=== PATIENT | female | born 1975 | race Two or more races ===

== ENCOUNTER → 2018-07-11 | Outpatient (CLI) | payer OTHER ==
[2014-04-19 09:23] VITALS: BMI 33.4
[~2018-07-11] MED LIST: DOCU240C67 PO; Ferrous Sulfate PO; Ibuprofen PO; LEVO88TA45 PO; Lanolin TP; PER PO; PREPH PR
[2018-07-11 14:09] LABS: PLATELET COUNT, AUTOMATED 321 K/uL (150-450)
== END ==
LOC: LAB 13:36
PROVIDERS: ATTEND Obstetrics & Gynecology
DX: N92.0 Excessive and frequent menstruation with regular cycle (principal)
CPT/HCPCS: 36415; 82040; 82247; 82310; 82374; 82435; 82565; 82947; 84075; 84132; 84146; 84155; 84295; 84439; 84443; 84450; 84460; 84481; 84520; 85025

== ENCOUNTER → 2018-08-23 | Outpatient (REF) | payer OTHER ==
[2014-04-19 09:23] VITALS: BMI 33.4
== END ==
LOC: ZZSENDIN 13:39
PROVIDERS: ATTEND Obstetrics & Gynecology
DX: N76.0 Acute vaginitis (principal)
CPT/HCPCS: 87070

== ENCOUNTER → 2018-08-23 | Outpatient (CLI) | payer OTHER ==
[2014-04-19 09:23] VITALS: BMI 33.4
== END ==
LOC: LAB 13:58
PROVIDERS: ATTEND Obstetrics & Gynecology
DX: Z13.9 Encounter for screening, unspecified (principal); E03.9 Hypothyroidism, unspecified
CPT/HCPCS: 36415; 82306; 83036; 84443; 84481

== ENCOUNTER → 2018-09-25 | Outpatient (REF) | payer OTHER ==
[2014-04-19 09:23] VITALS: BMI 33.4
== END ==
LOC: ZZIMHLAB 15:46
PROVIDERS: ATTEND Obstetrics & Gynecology
DX: N91.2 Amenorrhea, unspecified (principal)
CPT/HCPCS: 84702

== ENCOUNTER → 2018-09-27 | Outpatient (CLI) | payer OTHER ==
[2014-04-19 09:23] VITALS: BMI 33.4
== END ==
LOC: LAB 13:54
PROVIDERS: ATTEND Obstetrics & Gynecology
DX: N92.0 Excessive and frequent menstruation with regular cycle (principal)
CPT/HCPCS: 36415; 82670; 83001; 83520; 84146

== ENCOUNTER → 2018-10-27 | Outpatient (CLI) | payer OTHER ==
[2014-04-19 09:23] VITALS: BMI 33.4
--- NOTE | 2018-10-28 03:20 | RADIOLOGY IMAGING REPORT ---
[place]AC[place] [facility] [place]IENT NAME: Merlin Pagan : 1975 MR: [id number] V: [id number] EXAM DATE: ORDERING PHYSICIAN: LYNDSAY CAMACHO TECHNOLOGIST: Location: [facility] Patient: Merlin Pagan : 1975 Visit/Account:[id number] Date of Sevice: 10/27/2018 EXAMINATION: ENDOVAGINAL PELVIC ULTRASOUND WITH DOPPLER DATE: 10/27/2018 3:40 PM INDICATION: Left lower quadrant pain. TECHNIQUE: Endovaginal harris scale, color, and pulsed Doppler ultrasound examination of the pelvis was performed. COMPARISON: None. FINDINGS: The uterus is anteverted and measures 7.8 x 4.5 x 5.8 cm. There is no definite focal lesion in the my ometrium. The endometrial stripe measures 5 mm in AP thickness, which is within normal limits. The right ovary measures 3.0 x 1.6 x 2.2 cm and contains physiologic follicles and has venous and art erial waveforms on pulsed Doppler. The left ovary measures 3.7 x 3.1 x 2.4 cm and contains physiologi c follicles and has arterial waveforms on pulsed Doppler. There is no free fluid or adnexal mass in the pelvic cavity. IMPRESSION: Small volume of free fluid in the pelvic cavity containing debris is likely within physio logic limits and may be due to recent cyst/follicle rupture. Report Dictated By: Frederic Canchola MD at 10/28/2018 2:49 AM Report E-Signed By: Frederic Canchola MD at 10/28/2018 2:52 AM WSN:[id number]
== END ==
LOC: US 16:01
PROVIDERS: ATTEND Obstetrics & Gynecology
DX: R10.31 Right lower quadrant pain (principal)
CPT/HCPCS: 76830

== ENCOUNTER → 2018-11-13 | Outpatient (CLI) | payer OTHER ==
[2014-04-19 09:23] VITALS: BMI 33.4
== END ==
LOC: EDSEX 16:48 → LAB 16:48
PROVIDERS: ATTEND Nurse Practitioner Family
DX: E03.9 Hypothyroidism, unspecified (principal); E55.9 Vitamin D deficiency, unspecified
CPT/HCPCS: 36415; 82306; 84144; 84443

== ENCOUNTER → 2019-01-05 | Outpatient (CLI) | payer OTHER ==
[2014-04-19 09:23] VITALS: BMI 33.4
--- NOTE | 2019-01-09 10:56 | RADIOLOGY IMAGING REPORT ---
FACILITY: [facility] PATIENT NAME: KELTON ANDERSON : [id number] MR: [id number] V: [id number] EXAM DATE: ORDERING PHYSICIAN: LYNDSAY CAMACHO TECHNOLOGIST: Garry Valencia RDMS, SAMMY PROCEDURE:US BILATERAL BREAST COMPARISON:None. INDICATIONS:bilat breast pain & warmth of both breasts AREA SCANNED: Entire portion of both breasts was scanned sonographically. FINDINGS: No sonographic abnormality was identified in either breast. However, bilateral mammogram is recommended for further evaluation. DIAGNOSTIC CATEGORY 0--INCOMPLETE: NEED ADDITIONAL IMAGING EVALUATION. RECOMMENDATIONS: ADDITIONAL MAMMOGRAPHIC VIEWS REQUIRED: BILATERAL BREASTS. IMPRESSION: BIRADS 0: Incomplete, need additional imaging evaluation. No sonographic abnormality is identified of either breast. However, a bilateral mammogram is recommended since the patient is 33 years old & has not had a baseline mammogram. Dictated by: Dorothy Bateman M.D. on 01/05/2019 at 15:57 Transcribed by: [email or web address] on 01/09/2019 at 10:37 Approved by: Dorothy Bateman M.D. on 01/09/2019 at 10:50 [facility]
== END ==
LOC: EDSEX 03:59 → US 03:59
PROVIDERS: ATTEND Obstetrics & Gynecology
DX: R92.8 Other abnormal and inconclusive findings on diagnostic imaging of breast (principal)